=== PATIENT | female | born 1945 | race Caucasian/White ===

== ENCOUNTER → 2017-05-29 | Outpatient (CLI) | payer OTHER, MEDICARE ==
[~2017-05-29] MED LIST: ASACOL; B COMPLEX; CALCTAB5; LRT5 PO; MULT-506; NAPR-1169; OPTIRAY 320 IV PRN; REVIEWED; TRAM-10 PO
--- NOTE | 2017-05-29 19:07 | DIAGNOSTIC IMAGING REPORT ---
ABDOMEN AND PELVIS CT WITH IV AND ORAL CONTRAST CT DOSE: 224.50 mGycm HISTORY: GENITAL TRACT FISTULAE TECHNIQUE: Multiaxial CT images of the abdomen and pelvis were performed following the use of intravenous and oral contrast. A dose lowering technique was utilized adhering to the principles of ALARA. COMPARISON STUDY: CT abdomen and pelvis 02/08/2006. FINDINGS: Small left Bochdalek hernia. Lung bases are otherwise clear. Pleural calcifications are seen at the level of the lateral left lung base. Imaged inferior cardiac chambers are mildly enlarged. Cystic lesions with peripheral calcifications are noted along the falciform ligament and medial aspect of the right hepatic lobe and also noted adjacent to the IVC measuring up to 3.1 cm. These appear to be extrahepatic in nature. Additional cystic partially calcified lesions are noted adjacent to the inferior left hepatic lobe. No intrahepatic biliary ductal dilation identified. Gallbladder appears to be surgically absent. The spleen is absent. Moderate to severe generalized pancreatic atrophy. Indeterminate soft tissue attenuating 1.9 x 1.3 cm left adrenal gland lesion with a central calcification. Cystic lesions are seen within the region of the right adrenal gland with a normal right adrenal gland not identified. Low attenuating lesions of the kidneys bilaterally suggests renal cysts measuring up to 11 mm on the right. There is mild nonspecific urothelial enhancement of the left renal pelvis. No renal calculi or obstructive uropathy identified. Urinary bladder is partially decompressed. There is wall thickening of the urinary bladder with perivesicular stranding. There is a large lobulated cystic peripherally enhancing and peripherally calcified mass of the left hemipelvis measuring up to 7.6 x 8.3 x 12.2 cm nicely seen on image 215 series 3 which appears to invade the lower uterine segment, cervix and vagina with air foci centrally within this lesion. There is also loss of normal fat plane between the adjacent sigmoid colon with tumor abutting the sigmoid colon wall, image 300 series 3. Mild free pelvic fluid is noted. Additional cystic calcified focus noted within the left inguinal region, 2.0 x 2.2 cm. Postsurgical changes of the cecum. Central abdominal ostomy is noted. No bowel obstruction. There is ill-defined hazy wall thickening of small bowel noted just deep to the ostomy with ill-defined margins, image 195 series 3 measuring up to 5.2 x 3.9 cm. There is mild nonspecific skin thickening noted along the lower anterior chest wall. Ill-defined lucent 8 mm lesion of the left iliac wing as seen on image 225 of series 3 unchanged and likely benign. No additional suspicious lytic or lucent lesions identified. IMPRESSION: 1. 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 There is wall thickening with perivesicular stranding of the adjacent urinary bladder, possibly reflecting tumor extension. Loss of fat plane between the adjacent sigmoid colon is suspicious for tumor invasion. 2. Cystic partially calcified left inguinal lymph node compatible with lymphatic metastasis. Peripherally calcified cystic foci of the upper abdomen adjacent to the liver suggest metastatic implants. 3. Indeterminate 1.9 cm soft tissue attenuating left adrenal mass with central calcification, appears unchanged in size from study dated 02/08/2006 suggesting benign etiology. 4. Ill-defined soft tissue prominence with wall thickening is noted within small bowel adjacent to the central ostomy which may reflect reactive change or neoplasm. 5. Additional findings as above. Electronically signed by: Manoj Mtz M.D. 05/29/2017 7:06 PM Dictated Date/Time: 05/29/2017 3:27 PM
== END | disposition home or self-care (01) ==
LOC: C.CTS 12:47
PROVIDERS: ATTEND Colon & Rectal Surgery
DX: N82.4 Other female intestinal-genital tract fistulae (principal)